=== PATIENT | female | born 1955 | race Caucasian/White ===

== ENCOUNTER 2025-06-20 14:27 | Emergency (ER) | payer MEDICARE, SELFPAY ==
[2025-06-20] VITALS (7 sets, daily range): BP systolic 131–162; BP diastolic 68–84; PULSE 78–88; RESP 12–19; TEMP 36.4–36.8; O2SAT 98–100; BMI 21.5
--- NOTE | 2025-06-20 14:40 | ED.RN ---
pt denies to this nurse chest pain. pt states she has had indigestion since Monday and related it to something she ate. pt went on to describe how she flew out to [place] to have all of her amalgam fillings removed and went on about her dental health.
--- NOTE | 2025-06-20 15:03 | EKG12_ITS ---
Test Reason : CP Blood Pressure : */* mmHG Vent. Rate : 89 BPM Atrial Rate : 89 BPM P-R Int : 124 ms QRS Dur : 90 ms QT Int : 352 ms P-R-T Axes : 75 81 71 degrees QTcB Int : 428 ms Normal sinus rhythm Normal ECG Confirmed by MARU ANDERSON, RODRIGO ([id number]), news videotape editor INDERJIT PUENTE ([id number]) on 06/23/2025 6:22:31 AM Referred By: ER/UG Confirmed By: RODRIGO MAHONEY MD
--- NOTE | 2025-06-20 15:11 | EDS_ITS ---
HPI History of Present Illness Chief Complaint: Chest Pain Informant: patient Onset/Context/Timing Onset: Days Activity at onset: gradual Timing: Intermittent Quality: Positive for Sharp Location: Left Chest Current Severity: Gone Maximum Severity: Mild Worsened By: Nothing Relieved By: Nothing Associated Symptoms: Negative for Nausea, Vomiting, Diaphoresis, Dyspnea, Lightheadedness or Palpitations Narrative Narrative: 70-year-old female no significant past medical history other than ADHD. States since Monday she has had intermittent nonexertional stabbing chest discomfort. Different areas the left side of her chest. No radiation to her back neck or jaw. No radiation to her left arm. No associated exertional chest pain or exertional shortness of breath. No nausea nor dyspnea no diaphoresis. She has no cardiac history. No history of DVT or PE. No recent travel, immobilization or surgery. No hemoptysis. No pleuritic pain. Prior Similar Symptoms: No Recent Illness/Hospitalization: No CVD Risk Factors: Negative for Hypertension, Diabetes or Hypercholesterolemia PE Risk Factors: Negative for Recent Travel/Surgery, Recent Immobilization, Prior DVT or PE, Cancer or OCP + Smoking + >/=35 TAD Risk Factors: Negative for Marfan's Syndrome [facility], [facility] Home Medications ?Medication ?Instructions ?Recorded ?Last Taken ?Type dextroamphetamine-amphetamine 30 30 mg PO DAILY Unknown History mg tablet (Adderall) meclizine 25 mg chewable tablet 25 mg PO Q8H PRN PRN V ertigo ##14 12/16/13 Unknown Rx promethazine 25 mg tablet 25 mg PO Q6H PRN PRN Nausea ##10 12/16/13 Unknown Rx Allergy/AdvReac Type Severity Reaction Status Date / Time Iodinated Contrast Media Allergy Hives Verified 06/20/25 14:42 (Iodinated Contrast Media - IV Dye) naproxen (From Naprosyn) Allergy Unknown Verified 06/20/25 14:42 Social History Smoking Status: Never smoker ROS ROS ED ROS Narrative Denies recent illness. Constitutional Constitutional ED: Denies chills or fever(s) Eyes Eyes: Reports none ENT ENT ED: Denies ear pain Cardiovascular Cardiovascular: Reports as per HPI and chest pain; Denies orthopnea, palpitations or racing heartbeat Respiratory/Chest Respiratory/Chest: Denies cough, dyspnea, dyspnea on exertion or orthopnea Gastrointestinal Gastrointestinal: Denies abdominal pain, constipation, diarrhea, melena, nausea or vomiting Genitourinary Genitourinary ED: Denies dysuria or hematuria Musculoskeletal Musculoskeletal: Denies arthralgias or back pain Integumentary Denies abscess or Abrasions Neurologic Neurologic: Denies headache(s) Psychiatric Psychiatric: Denies anxiety or depression Endocrine Endocrinology: Denies cold intolerance, heat intolerance, polydipsia, polyphagia or polyuria Hematologic/Lymphatic Hematologic/Lymphatic: Denies easy bleeding, easy bruising or lymphadenopathy Allergic/Immunologic Allergic/Immunologic ED: Denies mouth swelling, tongue swelling or urticaria EXAM Physical Exam Narrative Exam Narrative: 70-year-old female sitting upright in bed. Vital signs stable afebrile. Pulse ox 98% on room air no signs of hypoxia. H EENT exam very poor dentition. Multiple missing teeth. Teeth that are left are all decaying. Cavities. Eroded to the gumline. Moist mucous membranes. Neck nontender. No lymphadenopathy. No facial swelling. Lungs clear to auscultation bilaterally. Heart regular rhythm no murmur. Chest wall ribs nontender. Abdomen soft nontender. Moving all 4 extremities. Equal symmetrical radial pulses. 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 Normal dorsi plantarflexion. Calves are nontender without edema or cords. Patient is awake alert. Answering questions following commands. Const Vital Signs: 06/20/25 14:27 06/20/25 14:39 06/20/25 15:03 Temperature 97.5 F L Temperature Source Oral Pulse Rate 85 Respiratory Rate 18 Respiratory Effort Normal Blood Pressure 144/68 H Blood Pressure Mean 93 Pulse Ox 98 100 Oxygen Delivery Method Room Air Room Air 06/20/25 15:27 06/20/25 16:00 06/20/25 17:00 Temperature Temperature Source Pulse Rate 81 78 78 Respiratory Rate 16 12 15 Respiratory Effort Blood Pressure 132/78 H 131/71 H 140/79 H Blood Pressure Mean 96 91 99 Pulse Ox 100 98 100 Oxygen Delivery Method Room Air Positive well nourished and well developed; Negative for cachectic, contractures or unkempt General Appearance ED: well developed and NAD; Negative for unkempt, cachectic or contractures Nutritional Appearance: Negative for cachectic HEENT Reports moist mucous membranes HEENT Narrative: Very poor dentition. normocephalic and atraumatic Eyes PERRL Neck no lymphadenopathy, supple and no JVD Chest Wall inspection of chest normal and palpation of chest normal Resp normal respiratory effort and clear to auscultation bilaterally Cardio regular rate, regular rhythm, S1 normal heart sound, S2 normal heart sound and no murmurs Peripheral Pulses: pulses 2+ throughout GI normal to inspection, nondistended, normoactive bowel sounds, soft to palpation, non-tender, non-distended and no masses Back/Spine no CVA tenderness and no thoracic nor lumbar tenderness Extremity normal to inspection Neuro oriented x3, CN's II-XII intact bilaterally and no sensory deficits noted Sensorium / Orientation: awake, alert, oriented to person, oriented to place and oriented to time; Negative for confused, lethargic or stuporous Motor Exam: strength 5/5 throughout Psych mental status grossly normal Appearance: Negative for unkempt Skin no rashes or lesions noted and no wounds MDM MDM MDM Narrative Medical decision making narrative: 70-year-old atypical nonexertional sharp fleeting chest pain. Currently symptom-free. She will undergo cardiac workup. She has no cardiac history. She has no history of DVT or PE or risk factors. Repeat exam around 4 PM patient doing well. Symptom-free. We went over her test results. Awaiting her 2-hour troponin as well as it is okay should be discharged home with outpatient follow-up. Repeat exam at 6:13 PM patient doing well. Repeat troponin was only 10. She will be discharged to home. History & Record Review Discussion w/independent historian: Patient Additional record(s) reviewed:: Prior inpatient record, Prior outpatient record, Prior ED visit and Prior labs Lab Data Attestation: I reviewed the patient's lab results. Lab results narrative: CBC shows a normal white count 6 H&H 13 and 40. Platelets 194. Electrolytes unremarkable gap 13. BUN creatinine of 31 and 1. Glucose 118. Troponins 11. 2-hour troponin 10. Chest x-ray is unremarkable. Labs: Laboratory Results - last 24 hr 06/20/25 06/20/25 14:54 16:57 WBC 6.2 RBC 4.61 Hgb 13.9 Hct 40.4 MCV 87.6 MCH 30.2 MCHC 34.4 RDW Std Deviation 39.3 RDW Coeff of Greg 12.3 Plt Count 194 MPV 10.3 Immature Gran % (Auto) 0.300 Neut % (Auto) 72.1 H Lymph % (Auto) 16.8 L O'Brien % (Auto) 8.2 Eos % (Auto) 2.1 Baso % (Auto) 0.5 Absolute Neuts (auto) 4.5 Absolute Lymphs (auto) 1.04 Nucleated RBC % 0 Sodium 140 Potassium 4.2 Chloride 104 Carbon Dioxide 22.9 Anion Gap 13 BUN 31 H Creatinine 1.01 Estim Creat Clear Calc 38.55 L Est GFR (MDRD) Non-Af 60 BUN/Creatinine Ratio 30.4 H Glucose 118 H Calcium 9.7 Troponin T High Sens 11 Troponin T Hi Sens 2 Hr 10 Radiography Chest X-Ray - ED: 1 View, Read by ED Physician, Normal, Heart, Lungs, Mediastinum, Bony Structures, No Acute Disease and Chronic Changes Diagnostic Testing: Clinical Impression(s) from Imaging Studies Chest X-Ray 06/20/25 15:35 IMPRESSION: No radiographic evidence of acute cardiopulmonary disease. Reading Location: [place] [id number] Rhythm Strip Rhythm Strip: Sinus Rhythm Rate: 89 Ectopy: None EKG Initial EKG: Attestation: I personally reviewed and interpreted this EKG as follows: Interpretation: Sinus Rhythm and No Acute Injury Pattern Comments: Normal sinus rhythm rate 89 no acute signs of [place] nor ischemia. No dysrhythmia. Prior: No Prior Discharge Plan Triage Chief Complaint: Chest Pain ED Provider: Atif Nuñez Dx/Rx/DC Orders Clinical Impression: Chest pain Instructions: ED Chest Pain, Uncertain Cause Prescriptions: No Action dextroamphetamine-amphetamine [Adderall] 30 MG tablet 30 mg PO DAILY promethazine 25 MG tablet 25 mg PO Q6H PRN PRN (Reason: Nausea) Qty: 10 0RF meclizine 25 MG tablet,chewable 25 mg PO Q8H PRN PRN (Reason: Vertigo) Qty: 14 0RF Primary Care Provider: Sunday Vegas Referrals: Sunday Vegas MD [Primary Care Provider, Family Practice] - 3-5 Days if not improving Activity Restrictions/Additional Instructions: Follow-up with your primary care physician. Your labs, chest x-ray and EKG all look good today. No specific cause for your pain. Print Language: Luxembourger Disposition Disposition: Home, Self Care
[2025-06-20 15:20] LABS: Hematocrit 40.4 % (37-47); Hemoglobin 13.9 g/dL (12.0-15.0); Immature Granulocytes Count 0.020 X10^3/uL (0.0-0.0); Mean Corp Hgb Conc 34.4 g/dL (32-36); Mean Corpuscular Volume 87.6 fL (81-99); Mean Platelet Vol. 10.3 fl (6.2-12.0); NRBC Flagged by Analyzer 0 % (0-5); Platelet Count 194 K/mm3 (150-450); RBC Distribution Width CV 12.3 % (11.6-14.6); RBC Distribution Width SD 39.3 fl (35.1-43.9); Red Blood Count 4.61 M/mm3 (4.2-5.4); White Blood Count 6.2 K/mm3 (4.4-11.0)
--- NOTE | 2025-06-20 15:35 | RAD_ITS ---
PROCEDURE: CHEST 1 VIEW (PORTABLE) 06/20/2025 REASON FOR EXAM: CHEST PAIN TECHNIQUE: Frontal view of the chest. COMPARISON: None FINDINGS: Cardiomediastinal silhouette pulmonary vasculature and bony thorax are within normal limits. No focal infiltrates or effusion. RAD/Chest 1 View (Portable) IMPRESSION: No radiographic evidence of acute cardiopulmonary disease. Reading Location: [place] [id number]
[2025-06-20 15:37] LABS: Anion Gap 13 (5-15); BUN 31 mg/dL (4-19); BUN/Creat Ratio 30.4 RATIO (10-20); Calcium,Total 9.7 mg/dL (7.6-11.0); Carbon Dioxide 22.9 mmol/L (21.0-32.0); Chloride 104 mmol/L (98-108); Estimated Creatinine Clearance 38.55 ml/min (50-250); Glucose 118 mg/dL (70-99); Potassium 4.2 mmol/L (3.3-5.1); Troponin T High Sensitivity 11 ng/L (<=14)
[2025-06-20 17:46] LABS: Troponin T High Sens 2 HR 10 ng/L (<=14)
== END 2025-06-20 18:40 | disposition home or self-care (01) ==
PROVIDERS: Emergency Provider Emergency Medicine; PCP Family Medicine; Visit Provider Emergency Medicine
DX: R07.89 Other chest pain (principal); F90.9 Attention-deficit hyperactivity disorder, unspecified type; Z79.899 Other long term (current) drug therapy
CPT/HCPCS: 71045; 80048; 84484; 85025; 93005; 99284; A4216